=== PATIENT | male | born 1950 | race Caucasian/White ===

== ENCOUNTER 2017-10-09 07:33 | Emergency (ER) | payer MEDICARE ==
[2017-10-09 07:47] VITALS: BP 130/76
--- NOTE | 2017-10-09 08:25 | ERNOTE ---
ENT HPI Date of Service: 10/09/17 Presenting Symptoms: other - blood shot eye Time Seen by Provider: 10/09/17 08:03 Source: patient, family Exam Limitations: no limitations - Immun/Allergies/Home Medications Immunizations: IMMUNIZATION HX Immunizations Up to Date No History of Influenza Vaccine No Hx Pneumococcal Vaccination Yes Allergies/Adverse Reactions: Allergies Allergy/AdvReac Type Severity Reaction Status Date / Time duloxetine [From Cymbalta] Allergy Mild Other Verified 10/09/17 07:40 Venlafaxine Analogues Allergy Mild Other Verified 10/09/17 07:40 Home Medications: HOME MEDICATIONS Gabapentin [Neurontin] 900 mg PO BID 06/19/13 [Last Taken Unknown] Enalapril/Hydrochlorothiazide [Enalapril-Hctz 10-25 mg Tablet] 1 each PO DAILY 07/07/16 [Last Taken Unknown] Glimepiride [Amaryl] 4 mg PO BID@0700,1700 07/07/16 [Last Taken Unknown] Multivitamins [Multivitamin Wilber] 1 cap PO DAILY 07/07/16 [Last Taken Unknown] Nortriptyline HCl [Pamelor] 15 mg PO HS 07/07/16 [Last Taken Unknown] Omeprazole [Prilosec] 20 mg PO DAILY 07/07/16 [Last Taken Unknown] Saw [place]/Pyg/Zn/B6 [Hm Saw [place] Complex Sftgel] 1 each PO DAILY 07/07/16 [Last Taken Unknown] metFORMIN HCL [Glucophage] 1,000 mg PO BIDWM 07/07/16 [Last Taken Unknown] metFORMIN HCL [Glucophage] 250 mg PO BIDWM 07/07/16 [Last Taken Unknown] sitaGLIPtin PHOSPHATE [Januvia] 100 mg PO DAILY 07/07/16 [Last Taken Unknown] Sulfamethoxazole/Trimethoprim [Bactrim] 1 tab PO DAILY #30 tablet 07/08/16 [ Last Taken Unknown] traMADol HCL [Ultram] 50 mg PO Q4H PRN #20 tablet 07/08/16 [Last Taken Unknown] - History of Present Illness Narrative: patient woke up this am with blood shot left eye, no pain Severity: Present: mild ENT Location: Present: eye (L) Prearrival Treatment: Present: no prearrival treatment Modifying Factors - Improves: Reports: nothing Modifying Factors - Worsens: Reports: nothing Associated Symptoms - ENT: Reports: denies symptoms Review of Systems - Narrative Narrative: unremarkable - Review of Systems Constitutional: Present: See HPI EYE: Present: see HPI, other ENT: Present: no symptoms reported Respiratory: Present: no symptoms reported Cardiology: Present: no symptoms reported Gastrointestinal/Abdominal: Present: no symptoms reported Genitourinary: Present: no symptoms reported Musculoskeletal: Present: no symptoms reported Skin: Present: no symptoms reported Neurological: Present: no symptoms reported Endocrine: Present: no symptoms reported Hematologic/Lymphatic: Present: no symptoms reported - Narrative Narrative: unremarkable - Patient's Past Medical History Patient History - Medical: Chronic Pain, Diabetes Type 2, Other Patient History - Cardiac/Respiratory: Hypertension, Hyperlipidemia Patient History - Cancer: Skin Patient History - Surgical Procedures: T & A, Other Patient History - Other: None - Family History Mother Family History - Medical: Diabetes Type 2 Family History - Cardiac/Respiratory: Myocardial Infarction Family History - Cancer: No pertinent family hx Sister Family History - Medical: No pertinent hx Family History - Cardiac/Respiratory: Coronary Heart Disease, Myocardial Infarction Family History - Cancer: No pertinent family hx Father Family History - Medical: , Other Family History - Cardiac/Respiratory: No pertinent hx Family History - Cancer: No pertinent family hx - Social History Living Situations: spouse Abuse History: No History of abuse Psych History: Hx of Anxiety, Hx of Depression, Current tx/ever been on anti- depressants or anti-anxiety meds Smoking Status: Former smoker Have you smoked in the past 12 months: No Do you dip or chew tobacco: No Patient requests Smoking Cessation Consult: No Initiate information on Smoking Cessation: No Alcohol Use: rarely Drug Use: none - Immunizations Immunizations Up to Date: No Hx Pneumococcal Vaccination: Yes History of Influenza Vaccine: No Physical Exam - Physical Exam General Appearance: Present: no apparent distress Head Exam: Present: normal inspection, no evidence of injury Eye Exam: Normal inspection: bilateral, PERRL: bilateral, EOMI: bilateral, Sclera injection: left - subconjunctival hemorrhage Ears, Nose, Throat: Present: normal ENT inspection Neck: Present: normal inspection, nontender Respiratory: Present: no respiratory distress, normal breath sounds, no accessory muscle use, chest nontender, lungs clear Cardiovascular/Chest: Present: regular rate, rhythm, no murmur, normal peripheral pulses Gastrointestinal/Abdominal: Present: normal bowel sounds, nontender, nondistended, soft, no organomegaly Back Exam: Present: normal inspection, normal range of motion, no CVA tenderness , no vertebral tenderness Extremity Exam: Present: normal inspection, non-tender, normal range of motion, no edema Neurological Exam: Present: alert, oriented, normal mood/affect, no motor/ sensory deficits Skin Exam: Present: normal color, warm/dry Lymphatic Exam: Present: no adenopathy ED Progress - Date and Time Seen: Date and Time: 10/09/17 08:22 unchanged - Vital Signs Patient's Vital Signs:: I have reviewed the patient's vital signs. Vital Signs: Vital Signs 10/09/17 07:41 Temperature 36 C L Pulse Rate 72 Respiratory 18 Rate Blood Pressure 130/76 O2 Sat by Pulse 95 Oximetry - Progress/Reassessment Chief Complaint: Eye Injury/Trauma Progress:: Unchanged - Transfer of Care Expected Disposition: Discharge Plan - Plan Plan: to be discharged Departure Clinical Impression: Subconjunctival hemorrhage of left eye - Departure Disposition: Home self-care Condition: Fair Instructions: Subconjunctival Hemorrhage Referrals: Harleen Jarrett MD [Primary Care Provider] -
== END 2017-10-09 08:25 | disposition home or self-care (01) ==
LOC: ER 07:33
DX: H11.32 Conjunctival hemorrhage, left eye (principal); G89.29 Other chronic pain; E11.9 Type 2 diabetes mellitus without complications; E78.5 Hyperlipidemia, unspecified; I10 Essential (primary) hypertension; C44.90 Unspecified malignant neoplasm of skin, unspecified

== ENCOUNTER 2020-05-08 16:43 | Observation (INO) ==
[2020-05-08] MEDS ORDERED: DIPHTH,PERTUSS(ACELL),TET VAC 0.5 ML VIAL IM ONE (17:10)
[2020-05-08] MEDS ORDERED: ACETAMINOPHEN 325 MG TABLET PO ONE (17:24)
[2020-05-08 17:44] LABS: Hematocrit 34.9 % (42.0-52.0); Hemoglobin 11.5 gm/dL (13.5-18.0); Mean Cell Volume 97.5 fl (78-100); Mean Corpuscular Hemoglobin 32.1 pg (27-31); Mean Platelet Volume 11.5 fl (8-11.3); Neutrophil # 8.8 K/mm3 (1.3-6.0); Platelet Count 145 K/mm3 (150-450); Red Blood Count 3.58 M/mm3 (4.7-6.0); Red Cell Distribution Width 12.6 % (11.5-14.0); White Blood Count 10.5 K/mm3 (4.0-10.5)
[2020-05-08 18:03] LABS: Anion Gap 13.9 mmol/L (6.8-13.8); BUN/Creatinine Ratio 23.9 (9.0-21.6); Calcium * 9.4 mg/dL (7.9-10.9); Carbon Dioxide 27.4 mmol/L (24-32.6); Estimated Creat Clear 98.6; Potassium 3.3 mmol/L (3.4-4.6)
[2020-05-08] MEDS ORDERED: NORMAL SALINE 1,000 ML IV PRN (19:04)
[2020-05-08] MEDS ORDERED: ceFAZolin SODIUM 1 GM VIAL IV ONE ×2 (19:09→20:03)
--- NOTE | 2020-05-08 20:05 | ERNOTE ---
Medical Problem HPI - Narrative Date of Service: 05/08/20 - General Chief Complaint: Fever Time Seen by Provider: 05/08/20 16:59 Source: patient Exam Limitations: no limitations - Immun/Allergies/Home Medications Immunizations: IMMUNIZATION HX Immunizations Up to Date Yes History of Influenza Vaccine No Hx Pneumococcal Vaccination No Allergies/Adverse Reactions: Allergies duloxetine [From Cymbalta] Allergy (Mild, Verified 05/08/20 17:24) Other Venlafaxine Analogues Allergy (Mild, Verified 05/08/20 17:24) Other Home Medications: HOME MEDICATIONS blood-glucose meter See Dose Instructions .ROUTE .MEDSUPPLY #1 ea 08/01/18 [Last Taken Unknown] Durable Medical Equipment See Dose Instructions .ROUTE .MEDSUPPLY #1 ea 01/13/19 [Last Taken Unknown] lancets See Dose Instructions .ROUTE .MEDSUPPLY #200 ea 12/13/19 [Last Taken Unknown] blood sugar diagnostic See Rx Instructions .ROUTE .COMPLEX #200 unknown measurement unit code: each 12/25/19 [Last Taken Unknown] gabapentin 300 mg capsule 300 mg PO TID #270 cap 01/16/20 [Last Taken Unknown] gabapentin 600 mg tablet See Rx Instructions .ROUTE .COMPLEX #270 unknown measurement unit code: tablet 01/16/20 [Last Taken Unknown] blood pressure monitor See Rx Instructions .ROUTE .MEDSUPPLY #1 ea 03/08/20 [Last Taken Unknown] atorvastatin 40 mg tablet See Rx Instructions .ROUTE .COMPLEX #90 unknown measurement unit code: tablet 04/15/20 [Last Taken Unknown] buspirone 15 mg tablet See Rx Instructions .ROUTE .COMPLEX #180 tab 04/15/20 [Last Taken Unknown] metformin 500 mg tablet 250 mg PO BIDWM #180 tab 04/15/20 [Last Taken Unknown] omeprazole 20 mg tablet,delayed release 20 mg PO DAILY #90 tab 04/15/20 [Last Taken Unknown] oxycodone-acetaminophen 5 mg-325 mg tablet 1 tab PO QID PRN #56 tab 04/15/20 [Last Taken Unknown] tamsulosin 0.4 mg capsule See Rx Instructions .ROUTE .COMPLEX #90 unknown measurement unit code: capsule 04/15/20 [Last Taken Unknown] metformin 1,000 mg tablet 1,000 mg PO BIDWM #180 tab 04/24/20 [Last Taken Unknown] enalapril maleate 10 mg tablet 10 mg PO DAILY #90 tab 05/08/20 [Last Taken Unknown] glimepiride 4 mg tablet 4 mg PO DAILY #90 tab 05/08/20 [Last Taken Unknown] - History of Present History Narrative: 70-year-old male presents with concerns of fever. He reports that he recently stepped on a screw and had this in his foot for an unknown amount of time. He has peripheral neuropathy and no feelings in his distal extremities secondary to this neuropathy. He has been no neuropathy because of diabetes. He reports his diabetes is currently well controlled. Today noticed he had a fever of 102 presents emergency department. He states otherwise he is also noted pain in his leg and ankle that he thinks is actually coming from his foot. He is also noticed swelling in this foot and redness. All this is in his left foot. Timing: getting worse Review of Systems - Review of Systems Constitutional: Present: fever, chills ENT: Present: no symptoms reported Respiratory: Present: no symptoms reported Gastrointestinal/Abdominal: Present: no symptoms reported Genitourinary: Present: no symptoms reported Musculoskeletal: Present: muscle pain Skin: Present: rash Neurological: Present: no symptoms reported All Other Systems: All systems neg except as marked Medical History (Last Reviewed 05/08/20 @ 20:04 by Jagdish Guerin MD) Anxiety Onset Date: 05/31/14 Carotid stenosis Onset Date: Unknown Depression Onset Date: 05/31/14 Diabetes Onset Date: 08/01/12 Type II, uncontrolled Diabetic neuropathy Onset Date: 02/15/14 Diverticulosis of colon Onset Date: Unknown Scattered sigmoid. Epicondylitis Onset Date: Unknown Rt elbow Essential hypertension Onset Date: 02/08/13 GERD (gastroesophageal reflux disease) Onset Date: 04/01/10 Osteoarthritis Onset Date: 05/31/14 Prostatitis Onset Date: Unknown Surgical History: Surgical History (Last Reviewed 05/08/20 @ 20:04 by Jagdish Guerin MD) Hemorrhoid Surgery Onset Date: ~1993 History of back surgery Onset Date: 07/26/13 L4-5 fusion - Dr. Michaelle [place] History of umbilical hernia repair Dr. Kovacs 2006 Hx of arthroscopic knee surgery 6 scopes 1981 - 1999 Hx of colonoscopy Onset Date: 04/25/[address] Kovacs - benign hyperplastic polyp Hx of nasal polypectomy Onset Date: ~2006 Hx of neck surgery Onset Date: ~1996 C5-C7 discectomy Hx of tonsillectomy Onset Date: Unknown Hx of vein stripping Onset Date: ~2007 Ulcers Rt leg 1985, Rt ankle 2007 Family History: Family History (Last Reviewed 05/08/20 @ 20:04 by Jagdish Guerin MD) Father , Age 62 Peritonitis Gangrene, peritonitis from stomach ulcer. Mother , Age 67 Diabetes Sister Myocardial infarction 2 sisters w/[place] Ulcers 2 sisters, 1 w/ulcers Uncle Family history of prostate problems Social History: (Last Reviewed 05/08/20 @ 20:04 by Jagdish Guerin MD) Social History: Marital status: household members: spouse current occupational status: retired Highest education level completed: high school graduate Service: No Tobacco: Smoking Status: Former smoker Alcohol: alcohol intake: former Dietary Habits: caffeine: Yes caffeine comment: Current every day 8 cups/day 2 sodas daily Physical Exam - Physical Exam General Appearance: Present: wd/wn, no apparent distress Head Exam: Present: normal inspection Respiratory: Present: no respiratory distress Cardiovascular/Chest: Present: regular rate, rhythm, systolic murmur Gastrointestinal/Abdominal: Present: normal bowel sounds Neurological Exam: Present: alert, normal mood/affect Skin Exam: Present: normal color, skin rash - erythema of left foot, puncture wound Progress - Results and Orders Patient's Lab Results:: I have reviewed the patient's lab results. - Vital Signs Patient's Vital Signs:: I have reviewed the patient's vital signs. Vital Signs: Vital Signs 05/08/20 16:57 05/08/20 17:37 05/08/20 19:30 Temperature 38.1 C H 38.6 C H 37.4 C Pulse Rate 81 78 70 Respiratory Rate 16 16 14 Blood Pressure 156/60 H 152/68 H 158/51 H O2 Sat by Pulse Oximetry 94 98 96 - Progress/Reassessment Chief Complaint: Fever Progress:: Improved Progress Note-Subjective: 05/08/20 20:12 Exam findings consistent with acute cellulites, imaging does not suggest bone infection. Pt was started on ancef and placed in obs for further care. - Transfer of Care Pending Results: X-ray results Expected Disposition: Admit Departure Clinical Impression: Cellulitis and abscess of foot - Departure Disposition: Still a patient Condition: Fair Referrals: Libarnes,Roseller, MD [Primary Care Provider] -
[2020-05-08] MEDS ORDERED: ceFAZolin SODIUM 1 GM in DEXTROSE 5 % IN WATER 100 ML IV ONE ×2 (20:16)
--- NOTE | 2020-05-08 23:44 | HP ---
Chief Complaint - Chief Complaint Date of Service: 05/08/20 Time of Service: 23:44 Chief Complaint: Left foot puncture wound and redness History of Present Illness: Adolfo is a non-insulin diabetic with peripheral neuropathy who 2 days ago found that a screw had punctured through the bottom of his shoe and into his foot. He has since noted worsening redness and swelling. He denies significant pain due to his neuropathy. He did not even feel the screw go through his foot he only noticed it when walking he could her the clicking of the screw against the ground. He denies fever, chills, nausea, or vomiting. Medical History (Last Reviewed 05/08/20 @ 23:45 by Nicki Harry RN) Anxiety Onset Date: 05/31/14 Carotid stenosis Onset Date: Unknown Depression Onset Date: 05/31/14 Diabetes Onset Date: 08/01/12 Type II, uncontrolled Diabetic neuropathy Onset Date: 02/15/14 Diverticulosis of colon Onset Date: Unknown Scattered sigmoid. Epicondylitis Onset Date: Unknown Rt elbow Essential hypertension Onset Date: 02/08/13 GERD (gastroesophageal reflux disease) Onset Date: 04/01/10 Osteoarthritis Onset Date: 05/31/14 Prostatitis Onset Date: Unknown Surgical History: Surgical History (Last Reviewed 05/08/20 @ 23:45 by Nicki Harry RN) Hemorrhoid Surgery Onset Date: ~1993 History of back surgery Onset Date: 07/26/13 L4-5 fusion - Dr. Braswell [place] History of umbilical hernia repair Dr. Kovacs 2006 Hx of arthroscopic knee surgery 6 scopes 1981 - 1999 Hx of colonoscopy Onset Date: 04/25/[address] Kovacs - benign hyperplastic polyp Hx of nasal polypectomy Onset Date: ~2006 Hx of neck surgery Onset Date: ~1996 C5-C7 discectomy Hx of tonsillectomy Onset Date: Unknown Hx of vein stripping Onset Date: ~2007 Ulcers Rt leg 1985, Rt ankle 2007 Family History: Family History (Last Reviewed 05/08/20 @ 23:45 by Nicki Harry RN) Father , Age 62 Peritonitis Gangrene, peritonitis from stomach ulcer. Mother , Age 67 Diabetes Sister Myocardial infarction 2 sisters w/[place] Ulcers 2 sisters, 1 w/ulcers Uncle Family history of prostate problems Social History: (Last Reviewed 05/08/20 @ 23:45 by Nicki Harry RN) Social History: Marital status: household members: spouse current occupational status: retired Highest education level completed: high school graduate Service: No Tobacco: Smoking Status: Former smoker Alcohol: alcohol intake: former Dietary Habits: caffeine: Yes caffeine comment: Current every day 8 cups/day 2 sodas daily Review Of Systems (GEN) - Review of Systems Generalized/Overall Review: Absent: Weakness, Chills, Fever EENTM: Present: No Symptoms Reported Respiratory: Absent: Cough, Shortness of Breath Cardiac: Absent: Chest Pain, Edema Abdominal: Absent: Nausea, Vomiting Genitourinary: Present: No Symptoms Reported Musculoskeletal: Present: No Symptoms Reported Neurological: Present: No Symptoms Reported Skin: Present: Change in Color, Other - open puncture wound on bottom of left foot Endocrine: Present: No Symptoms Reported Immunizations: IMMUNIZATION HX Immunizations Up to Date Yes History of Influenza Vaccine No Hx Pneumococcal Vaccination No Allergies/Adverse Reactions: Allergies Allergy/AdvReac Type Severity Reaction Status Date / Time duloxetine [From Cymbalta] Allergy Mild Other Verified 05/08/20 17:24 Venlafaxine Analogues Allergy Mild Other Verified 05/08/20 17:24 Home Medications: HOME MEDICATIONS blood-glucose meter See Dose Instructions .ROUTE .MEDSUPPLY #1 ea 08/01/18 [Last Taken Unknown] Durable Medical Equipment See Dose Instructions .ROUTE .MEDSUPPLY #1 ea 01/13/19 [Last Taken Unknown] lancets See Dose Instructions .ROUTE .MEDSUPPLY #200 ea 12/13/19 [Last Taken Unknown] blood sugar diagnostic See Rx Instructions .ROUTE .COMPLEX #200 unknown measurement unit code: each 12/25/19 [Last Taken Unknown] gabapentin 300 mg capsule 300 mg PO TID #270 cap 01/16/20 [Last Taken Unknown] gabapentin 600 mg tablet See Rx Instructions .ROUTE .COMPLEX #270 unknown measurement unit code: tablet 01/16/20 [Last Taken Unknown] blood pressure monitor See Rx Instructions .ROUTE .MEDSUPPLY #1 ea 03/08/20 [Last Taken Unknown] atorvastatin 40 mg tablet See Rx Instructions .ROUTE .COMPLEX #90 unknown measurement unit code: tablet 04/15/20 [Last Taken Unknown] buspirone 15 mg tablet See Rx Instructions .ROUTE .COMPLEX #180 tab 04/15/20 [Last Taken Unknown] metformin 500 mg tablet 250 mg PO BIDWM #180 tab 04/15/20 [Last Taken Unknown] omeprazole 20 mg tablet,delayed release 20 mg PO DAILY #90 tab 04/15/20 [Last Taken Unknown] oxycodone-acetaminophen 5 mg-325 mg tablet 1 tab PO QID PRN #56 tab 04/15/20 [Last Taken Unknown] tamsulosin 0.4 mg capsule See Rx Instructions .ROUTE .COMPLEX #90 unknown measurement unit code: capsule 04/15/20 [Last Taken Unknown] metformin 1,000 mg tablet 1,000 mg PO BIDWM #180 tab 04/24/20 [Last Taken Unknown] enalapril maleate 10 mg tablet 10 mg PO DAILY #90 tab 05/08/20 [Last Taken Unknown] glimepiride 4 mg tablet 4 mg PO DAILY #90 tab 05/08/20 [Last Taken Unknown] Exam - Exam Vital Signs: Vital Signs - Last Taken Temp 37.4 C 05/08/20 23:14 Pulse 78 05/08/20 23:14 Resp 18 05/08/20 23:14 BP 147/53 05/08/20 23:14 Pulse Ox 98 05/08/20 23:14 Constitutional: Present: Alert, Oriented x3, Cooperative ENT Exam: Present: hearing grossly normal Eye Exam: bilateral eye: normal inspection Respiratory: Present: lungs clear, normal breath sounds, no respiratory distress Cardiovascular/Chest: Present: regular rate, rhythm. Absent: edema Peripheral Pulses: radial (R): 2+, radial (L): 2+ Abdomen: Present: Normal bowel sounds, soft, nontender, nondistended, no rebound tenderness Extremity: Absent: lower extremity edema Skin Exam: Present: other - left foot mild swelling and erythema, 0.5cm puncture wound at mid ball of foot, no active drainage or bleeding Appearance: Present: appropriate appearance, appropriate insight Eye contact: Present: cooperative, good eye contact, normal speech Thoughts: Present: normal thought pattern, no apparent hallucination Diagnostic Studies: Abnormal Lab Results 05/08/20 05/08/20 Range/Units 17:34 17:34 RBC 3.58 L (4.7-6.0) M/mm3 Hgb 11.5 L (13.5-18.0) gm/dL Hct 34.9 L (42.0-52.0) % MCH 32.1 H (27-31) pg Plt Count 145 L (150-450) K/mm3 MPV 11.5 H (8-11.3) fl Immature Gran # (Auto) 0.04 H (0.000-0.0310) K/mm3 Neutrophils % 84.0 H (42-75.0) % Lymphocytes % 6.4 L (20-51) % Neutrophils # 8.8 H (1.3-6.0) K/mm3 Lymphocytes # 0.67 L (1.5-3.5) k/mm3 Potassium 3.3 L D (3.4-4.6) mmol/L Anion Gap 13.9 H (6.8-13.8) mmol/L BUN/Creatinine Ratio 23.9 H (9.0-21.6) Random Glucose 144 H (70-110) mg/dL Laboratory Results WBC 10.5 K/mm3 (4.0-10.5) 05/08/20 17:34 RBC 3.58 M/mm3 (4.7-6.0) L 05/08/20 17:34 Hgb 11.5 gm/dL (13.5-18.0) L 05/08/20 17:34 Hct 34.9 % (42.0-52.0) L 05/08/20 17:34 MCV 97.5 fl (78-100) 05/08/20 17:34 MCH 32.1 pg (27-31) H 05/08/20 17:34 MCHC 33.0 g/dl (32-36) 05/08/20 17:34 RDW 12.6 % (11.5-14.0) 05/08/20 17:34 Plt Count 145 K/mm3 (150-450) L 05/08/20 17:34 MPV 11.5 fl (8-11.3) H 05/08/20 17:34 Immature Gran % (Auto) 0.40 % (0.001-0.429) 05/08/20 17:34 Immature Gran # (Auto) 0.04 K/mm3 (0.000-0.0310) H 05/08/20 17:34 Neutrophils % 84.0 % (42-75.0) H 05/08/20 17:34 Lymphocytes % 6.4 % (20-51) L 05/08/20 17:34 Monocytes % 8.9 % (0.0-9) 05/08/20 17:34 Eosinophils % 0.2 % (0.0-3.0) 05/08/20 17:34 Basophils % 0.1 % (0.0-1.0) 05/08/20 17:34 Nucleated RBC % 0.0 k/mm3 (0-1) 05/08/20 17:34 Neutrophils # 8.8 K/mm3 (1.3-6.0) H 05/08/20 17:34 Lymphocytes # 0.67 k/mm3 (1.5-3.5) L 05/08/20 17:34 Monocytes # 0.9 k/mm3 (0.0-1.0) 05/08/20 17:34 Eosinophils # 0.0 k/mm3 (0.0-0.7) 05/08/20 17:34 Absolute Basophils 0.0 k/mm3 (0.0-0.1) 05/08/20 17:34 Sodium 141 mmol/L (132-142) 05/08/20 17:34 Plasma Sodium 142 mmol/L (130-142) 05/08/20 17:34 Potassium 3.3 mmol/L (3.4-4.6) L D 05/08/20 17:34 Chloride 103 mmol/L (97-106) 05/08/20 17:34 Carbon Dioxide 27.4 mmol/L (24-32.6) 05/08/20 17:34 Anion Gap 13.9 mmol/L (6.8-13.8) H 05/08/20 17:34 BUN 21 mg/dL (6-23) 05/08/20 17:34 Creatinine 0.88 mg/dL (0.4-1.4) 05/08/20 17:34 Est GFR (Non-Af Amer) 91 mL/min (60-130) 05/08/20 17:34 BUN/Creatinine Ratio 23.9 (9.0-21.6) H 05/08/20 17:34 Random Glucose 144 mg/dL (70-110) H 05/08/20 17:34 Lactic Acid, Venous 0.9 mmol/L (0.4-2.0) 05/08/20 17:34 Calcium 9.4 mg/dL (7.9-10.9) 05/08/20 17:34 SARS-CoV-2 (PCR) Not detected (NotDetected) 05/08/20 19:14 Assessment/Plan - Narrative Narrative: Adolfo is a 70 yo male with a diabetic puncture wound with peripheral neuropathy after stepping on a screw that went through his shoe. Given Ancef in the ER. Overall erythema and swelling are not bad at the time of my examination. He is certainly at higher risk due to diabetic peripheral neuropathy. Will plan to change to levaquin oral which will cover for pseudomonas and if he is doing well plan to discharge to home tomorrow. Will admit to observation at this time. If he is showing signs of worsening then he may need to be changed to inpatient status. - Assessment/Plan 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 Qualifiers: Diabetes mellitus type: type 2 Qualified Code(s): E11.43 - Type 2 diabetes mellitus with diabetic autonomic (poly)neuropathy
[2020-05-08] MEDS ORDERED: oxyCODONE HCL/ACETAMINOPHEN 1 TAB TABLET PO PRN (23:46)
[2020-05-09] MEDS: ACETAMINOPHEN 500 MG TABLET PO PRN ×2 (00:43→09:46)
[2020-05-09 06:37] LABS: Hematocrit 34.4 % (42.0-52.0); Hemoglobin 11.1 gm/dL (13.5-18.0); Mean Cell Volume 98.3 fl (78-100); Mean Corpuscular Hemoglobin 31.7 pg (27-31); Mean Corpuscular Hgb Conc 32.3 g/dl (32-36); Neutrophil # 8.1 K/mm3 (1.3-6.0); Neutrophil % 79.7 % (42-75.0); Platelet Count 128 K/mm3 (150-450); Red Cell Distribution Width 12.7 % (11.5-14.0); White Blood Count 10.2 K/mm3 (4.0-10.5)
[2020-05-09 06:42] LABS: Albumin * 3.4 gm/dl (3.4-5.0); Anion Gap 11.9 mmol/L (6.8-13.8); BUN/Creatinine Ratio 22.4 (9.0-21.6); Bilirubin, Total 0.6 mg/dL (0.0-1.1); Ca. Corrected For Albumin 9.5 mg/dL (8.4-10.2); Calcium * 9.3 mg/dL (7.9-10.9); Carbon Dioxide 27.5 mmol/L (24-32.6); Potassium 3.4 mmol/L (3.4-4.6); Total Protein 6.6 gm/dL (6.2-8.2)
--- NOTE | 2020-05-09 08:11 | PN ---
Progess Note - Interim Date: 05/09/20 Time: 08:09 Narrative: 05/09/20 08:09 Had fever at 2000. [place] 1 dose of Ancef in the ER. Will get Levaquin at 9 this morniong. If no fever, will discharge after lunch or this afternoon. Will likely refer him to wound clinic as outpatient as he has necrotic area around wound.
[2020-05-09] MEDS ORDERED: GLIMEPIRIDE 4 MG TABLET PO SCH (09:00)
[2020-05-09] MEDS ORDERED: PANTOPRAZOLE SODIUM 20 MG TABLET.DR PO SCH (09:00)
[2020-05-09] MEDS ORDERED: GABAPENTIN 300 MG CAPSULE PO SCH ×2 (09:00→21:00)
[2020-05-09] MEDS ORDERED: LEVOFLOXACIN 750 MG TABLET PO SCH (09:00)
[2020-05-09] MEDS ORDERED: ENALAPRIL MALEATE 5 MG TABLET PO SCH (09:00)
[2020-05-09] MEDS ORDERED: GABAPENTIN 600 MG TABLET PO SCH ×2 (10:45→21:00)
[2020-05-09] MEDS ORDERED: METFORMIN HCL PO SCH ×4 (11:00→17:00)
--- NOTE | 2020-05-09 11:56 | DS ---
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 Qualifiers: Diabetes mellitus type: type 2 Qualified Code(s): E11.43 - Type 2 diabetes mellitus with diabetic autonomic (poly)neuropathy (4) Type 2 diabetes mellitus Problem: Chronic Qualifiers: Diabetes mellitus penitentiary insulin use: without penitentiary use Diabetes mellitus complication status: with neurologic complications Diabetes mellitus complication detail: with polyneuropathy Qualified Code(s): E11.42 - Type 2 diabetes mellitus with diabetic polyneuropathy (5) BPH (benign prostatic hyperplasia) Problem: Chronic Qualifiers: Lower urinary tract symptom presence: symptoms absent Qualified Code(s): N40.0 - Benign prostatic hyperplasia without lower urinary tract symptoms (6) Hyperlipidemia Problem: Chronic Qualifiers: Hyperlipidemia type: pure hypercholesterolemia Qualified Code(s): E78.00 - Pure hypercholesterolemia, unspecified (7) Hypertension Problem: Chronic Qualifiers: Hypertension type: essential hypertension Qualified Code(s): I10 - Essential (primary) hypertension Date of Discharge:: 05/09/20 Hospital Course: Adolfo Perdomo is a 70 year old WM with PMHx 0f non-insulin diabetic with peripheral neuropathy, Hypertension, BPH, Diabetes mellitus type 2, hyperlipidemia, who was admitted on 05/08/2020 for leg and foot redness and swelling. 2 days [employer], he found out that a screw had punctured through the bottom of his shoe and into his foot. He has since noted worsening redness and swelling. He denies significant pain due to his neuropathy. He did not even feel the screw go through his foot he only noticed it when walking he could her the clicking of the screw against the ground. He denies fever, chills, nausea, or vomiting. He got a dose of IV Ancef in the ED. Dr. Washington started him on Levaquin 750 mg PO q daiyl this morning and will continue with this. He has not had fever since 1999. We will refer him to [facility]ound Clinc as outpatient asw he has some blackish , necrotic area around the perimetry of his puncture wound. Procedures Performed: none Results and Findings: Pending Mircobiology Results 05/08/20 19:15 Foot - Left Wound Culture - Preliminary Gram Negative Bacilli Lab Pending Results 05/08/20 17:34: WBC 10.5, RBC 3.58 L, Hgb 11.5 L, Hct 34.9 L, MCV 97.5, MCH 32.1 H, MCHC 33.0, RDW 12.6, Plt Count 145 L, MPV 11.5 H, Immature Gran % (Auto) 0.40, Immature Gran # (Auto) 0.04 H, Neutrophils % 84.0 H, Lymphocytes % 6.4 L, Monocytes % 8.9, Eosinophils % 0.2, Basophils % 0.1, Nucleated RBC % 0.0, Neutrophils # 8.8 H, Lymphocytes # 0.67 L, Monocytes # 0.9, Eosinophils # 0.0, Absolute Basophils 0.0 05/08/20 17:34: Sodium 141, Plasma Sodium 142, Potassium 3.3 L D, Chloride 103, Carbon Dioxide 27.4, Anion Gap 13.9 H, BUN 21, Creatinine 0.88, Est GFR (Non-Af Amer) 91, BUN/Creatinine Ratio 23.9 H, Random Glucose 144 H, Calcium 9.4 05/08/20 17:34: Lactic Acid, Venous 0.9 05/08/20 19:14: SARS-CoV-2 (PCR) Not detected 05/09/20 06:26: WBC 10.2, RBC 3.50 L, Hgb 11.1 L, Hct 34.4 L, MCV 98.3, MCH 31.7 H, MCHC 32.3, RDW 12.7, Plt Count 128 L, MPV 12.0 H, Immature Gran % (Auto) 0.80 H, Immature Gran # (Auto) 0.08 H, Neutrophils % 79.7 H, Lymphocytes % 9.1 L, Monocytes % 10.0 H, Eosinophils % 0.3, Basophils % 0.1, Nucleated RBC % 0.0, Neutrophils # 8.1 H, Lymphocytes # 0.92 L, Monocytes # 1.0, Eosinophils # 0.0, Absolute Basophils 0.0 05/09/20 06:26: Sodium 142, Plasma Sodium 143 H, Potassium 3.4, Chloride 106, Carbon Dioxide 27.5, Anion Gap 11.9, BUN 19, Creatinine 0.85, Est GFR (Non-Af Amer) 95, BUN/Creatinine Ratio 22.4 H, Random Glucose 176 H, Calcium 9.3, Calcium Adj for Albumin 9.5, Total Bilirubin 0.6, AST 14, ALT 22, Alkaline Phosphatase 52, Total Protein 6.6, Albumin 3.4 Discharge Location: Home Disposition: Home self-care Condition: Good Discharge Activity: Activity as tolerated Discharge Diet: Consistent carbs Referrals: Harleen Jarrett MD [Primary Care Provider] - Additional Patient Instructions (free text): Follow up with PCP in 1 week. Please make an appointment with wound clinic as outpatient - Puncture wound, plantar area , left foot. Prescriptions (Any new or edited meds): Levofloxacin [Levaquin] 750 mg PO DAILY 10 Days #10 tab Transmission Status: Pending to [facility] Mupirocin 1 gm TOPICAL DAILY #1 [email or web address] Transmission Status: Pending to [facility] Acetaminophen [Tylenol] 500 mg PO Q6H PRN #30 tab PRN Reason: Pain/Fever Transmission Status: Pending to [facility] Complete Home Medications List: Complete Home Medication List: blood-glucose meter See Dose Instructions .ROUTE .MEDSUPPLY #1 ea 08/01/18 Durable Medical Equipment See Dose Instructions .ROUTE .MEDSUPPLY #1 ea 01/13/19 lancets See Dose Instructions .ROUTE .MEDSUPPLY #200 ea 12/13/19 blood sugar diagnostic See Rx Instructions .ROUTE .COMPLEX #200 unknown measurement unit code: each 12/25/19 gabapentin 300 mg capsule 300 mg PO TID #270 cap 01/16/20 gabapentin 600 mg tablet See Rx Instructions .ROUTE .COMPLEX #270 unknown measurement unit code: tablet 01/16/20 blood pressure monitor See Rx Instructions .ROUTE .MEDSUPPLY #1 ea 03/08/20 atorvastatin 40 mg tablet See Rx Instructions .ROUTE .COMPLEX #90 unknown measurement unit code: tablet 04/15/20 buspirone 15 mg tablet See Rx Instructions .ROUTE .COMPLEX #180 tab 04/15/20 metformin 500 mg tablet 250 mg PO BIDWM #180 tab 04/15/20 omeprazole 20 mg tablet,delayed release 20 mg PO DAILY #90 tab 04/15/20 oxycodone-acetaminophen 5 mg-325 mg tablet 1 tab PO QID PRN #56 tab 04/15/20 tamsulosin 0.4 mg capsule See Rx Instructions .ROUTE .COMPLEX #90 unknown measurement unit code: capsule 04/15/20 metformin 1,000 mg tablet 1,000 mg PO BIDWM #180 tab 04/24/20 enalapril maleate 10 mg tablet 10 mg PO DAILY #90 tab 05/08/20 glimepiride 4 mg tablet 4 mg PO DAILY #90 tab 05/08/20 Acetaminophen [Tylenol] 500 mg PO Q6H PRN #30 tab 05/09/20 Levofloxacin [Levaquin] 750 mg PO DAILY 10 Days #10 tab 05/09/20 Mupirocin 1 gm TOPICAL DAILY #1 [email or web address] 05/09/20
[2020-05-09] MEDS ORDERED: TAMSULOSIN HCL 0.4 MG CAP.SR.24H PO SCH (12:00)
[2020-05-09] MEDS ORDERED: ROSUVASTATIN CALCIUM 20 MG TABLET PO SCH (12:15)
[2020-05-09] MEDS ORDERED: busPIRone HCL 5 MG TABLET PO SCH (13:00)
[2020-05-09 14:41] VITALS: BP 124/53
[2020-05-09] MEDS ORDERED: metFORMIN HCL 500 MG TABLET PO SCH (17:00)
== END 2020-05-09 14:41 | disposition home or self-care (01) ==
LOC: ER 16:43 → MS 16:43
PROVIDERS: ADMIT Family Medicine; ATTEND Internal Medicine